=== PATIENT | female | born 1955 | race Caucasian/White ===

== ENCOUNTER 2016-12-20 23:19 | Inpatient (IN) | payer MEDICARE, MEDICAID ==
--- NOTE | 2016-12-21 00:23 | ED ---
Abdominal Pain/Female - HPI Summary HPI Summary: 61 female presents as a transfer from [facility] with the diagnosis of an incarcerated hernia. Patient states she has had abdominal pain, nausea and diarrhea the past 4 days. Denies fever, flank pain and urinary pain. States abdominal pain is mid to low abdomen. Extensive PMHx. Had morphine while at [facility] for pain a few hours ago. - History of Current Complaint Chief Complaint: EDAbdPain Stated Complaint: ABD PAIN Time Seen by Provider: 12/20/16 23:35 Hx Obtained From: Patient, Medical Records, Other: - [facility] Onset/Duration: Sudden Onset, Lasting Weeks, Still Present, Worse Since Timing: Constant Severity Initially: Mild Severity Currently: Moderate Pain Intensity: 5 Pain Scale Used: 0-10 Numeric Location: Umbilical Radiates: No Character: Sharp Aggravating Factor(s): Nothing Alleviating Factor(s): Nothing Associated Signs and Symptoms: Positive: Nausea, Diarrhea Allergies/Adverse Reactions: Allergies Allergy/AdvReac Type Severity Reaction Status Date / Time No Known Allergies Allergy Verified 04/28/15 15:59 PMH/Surg Hx/FS Hx/Imm Hx Endocrine/Hematology History: Denies: Hx Diabetes Cardiovascular History: Reports: Hx Hypertension Denies: Hx Angina, Hx Congestive Heart Failure, Hx Coronary Artery Disease, Hx Hypercholesterolemia, Hx Myocardial Infarction, Hx Valvular Heart Disease Respiratory History: Reports: Hx Asthma, Other Respiratory Problems/Disorders - TROUBLE BREATHING WITH EXERTION, SHE RELATES TO WEIGHT Denies: Hx Chronic Obstructive Pulmonary Disease (COPD) GI History: Reports: Hx Gastroesophageal Reflux Disease - NO MEDS, Other GI Disorders - 1-2loose BMs a day prior to surgery History: Reports: Hx Kidney Infection - LAST ONE 01/2013 - NO PROBLEMS NOW, Other Problems/Disorders - Neurogenic bladder, OCCASIONAL BLADDER INFECTIONS , NONE NOW. Musculoskeletal History: Reports: Hx Arthritis - LEFT HIP, LOWER BACK, Hx Back Problems - Chronic back pain, Other Musculoskeletal History - left knee replacement Sensory History: Reports: Hx Contacts or Glasses - GLASSES Denies: Hx Hearing Aid Opthamlomology History: Reports: Hx Contacts or Glasses - GLASSES Neurological History: Reports: Hx Headaches, Other Neuro Impairments/Disorders - migranes, PAIN CLINIC PT Psychiatric History: Reports: Hx Anxiety - Pt denies - Surgical History Surgery Procedure, Year, and Place: 1994 [facility]. 2007 BACK SURGERY WITH RODS AND SCREWS (spinal fusion), [place]. 2008 TOTAL LEFT KNEE, [place]. 2009 TOTAL HYSTERECTOMY WITH BILATERAL SALPINGO-OOPHORECTOMY, [place]. 2010 BILATERAL BREAST REDUCTION, [place]. 2014 L TOTAL HIP Hx Anesthesia Reactions: Yes - INCREASE ANXIETY AND PANIC-PREOP / INCREASE BP POST OP - Immunization History Immunizations Up to Date: Yes Infectious Disease History: No Infectious Disease History: Denies: Traveled Outside the [place] in Last 30 Days - Family History Known Family History: Positive: None - Social History Alcohol Use: Rare Alcohol Amount: weekends Substance Use Type: Reports: None Substance Use Comment - Amount & Last Used: opiates prescribed for chronic back pain Smoking Status (MU): Never Smoked Tobacco Review of Systems Constitutional: Negative Cardiovascular: Negative Respiratory: Negative Positive: Abdominal Pain, Diarrhea, Nausea Skin: Negative All Other Systems Reviewed And Are Negative: Yes Physical Exam Triage Information Reviewed: Yes Vital Signs On Initial Exam: Initial Vitals Temp Pulse Resp BP Pulse Ox 97.8 F 59 16 145/71 97 12/20/16 23:28 12/20/16 23:28 12/20/16 23:28 12/20/16 23:28 12/20/16 23:28 Vital Signs Reviewed: Yes Appearance: Positive: Well-Appearing, Well-Nourished, Pain Distress - mild especially on palpation Skin: Positive: Warm, Skin Color Reflects Adequate Perfusion, Dry Head/Face: Positive: Normal Head/Face Inspection Eyes: Positive: Normal, Conjunctiva Clear ENT: Positive: Hearing grossly normal, TMs normal Neck: Positive: Supple, Nontender Respiratory/Lung Sounds: Positive: Clear to Auscultation, Breath Sounds Present. Negative: Rales, Rhonchi, Wheezes Cardiovascular: Positive: Normal, RRR, Pulses are Symmetrical in both Upper and Lower Extremities. Negative: Murmur, Rub Abdomen Description: Positive: Soft, Hernia @ - umbilicus, non reducible, Other : - tender on palpation. Negative: Peritoneal Signs Bowel Sounds: Positive: Present Musculoskeletal: Positive: Normal, Strength/ROM Intact Neurological: Positive: Normal, Sensory/Motor Intact, Alert, Oriented to Person Place, Time Psychiatric: Positive: Affect/Mood Appropriate AVPU Assessment: Alert - Pisek Coma Scale Coma Scale Total: 15 Diagnostics - Vital Signs Vital Signs Temp Pulse Resp BP Pulse Ox 12/20/16 23:28 97.8 F 59 16 145/71 97 - Laboratory Lab Statement: Any lab studies that have been ordered have been reviewed, and results considered in the medical decision making process. Abdominal Pain Fem Course/Dx - Course Course Of Treatment: Spoke with Dr Ling at 00:20 who is aware of the transfer and patient. Will admit and consult patient tomorrow morning. Dr Ling put in orders for pain management. - Diagnoses Provider Diagnoses: Incarcerated umbilical hernia - Provider Notifications Discussed Care Of Patient With: Dr Ling Time Discussed With Above Provider: 00:20 Instructed by Provider To: Admit As Inpatient Discharge - Discharge Plan Condition: Stable Disposition: ADMITTED TO [facility] Referrals: Mike BANKS,Paddy Sethi [Primary Care Provider] -
[2016-12-21] MEDS ORDERED: Ondansetron INJ* 2 MG/ML VIAL IV PRN (00:28)
[2016-12-21] MEDS: Morphine INJ* 2 MG/ML 1 ML SYRINGE IV PRN ×4 (01:37→14:40)
[2016-12-21] MEDS: NS 0.9% 1000 ML* 1,000 ML IV SCH ×3 (01:40→21:53)
[2016-12-21] MEDS ORDERED: Morphine INJ* 2 MG/ML 1 ML SYRINGE IM ONE (11:27)
[2016-12-21 12:13] LABS: Hematocrit 41 % (35-47); Hemoglobin 13.5 g/dl (12.0-16.0); Mean Corpuscular HGB Conc 33 g/dl (31-36); Mean Corpuscular Hemoglobin 31 pg (27-31); Mean Corpuscular Volume 93 fL (80-97); Mean Platelet Volume 9 um3 (7.4-10.4); Red Blood Count 4.43 10^6/ul (4.0-5.4); Red Cell Distribution Width 14 % (10.5-15); White Blood Count 5.1 10^3/ul (3.5-10.8)
[2016-12-21 12:23] LABS: BUN/Creatinine Ratio 12.8 (8-20); Calcium 8.9 mg/dL (8.6-10.3); EGFR African American 78.4 (>60); Potassium 3.9 mmol/L (3.5-5.0)
[2016-12-21] MEDS ORDERED: Albuterol/Ipratropium NEB.SOL* Albuterol 2.5 MG/Ipratropium 0.5 MG 3 ML INH PRN (12:27)
--- NOTE | 2016-12-21 13:12 | RAD ---
Indication: Respiratory history with asthma. Umbilical hernia. Comparison: December 20, [address] April 28, 2015 chest radiograph. Technique: Upright AP 1235 hours Report: Clear lungs and pleural spaces. Negative for pneumothorax. Mild cardiomegaly with LEFT atrial enlargement based on correlation with prior CT unremarkable central pulmonary vasculature. Moderately tortuous descending thoracic aorta. Negative for free air beneath the diaphragm. IMPRESSION: No evidence for acute intrathoracic disease.
[2016-12-21] MEDS: Acetaminophen TAB* 325 MG PO PRN ×2 (14:39→21:06)
--- NOTE | 2016-12-21 19:28 | HP ---
CC: Dr. Paddy Mckeon * ADMISSION HISTORY AND PHYSICAL: DATE OF ADMISSION: 12/21/16 LOCATION: This patient was seen in room 332 at [facility]. ATTENDING SURGEON: Ashish Stubbs MD (dictated by Michelle Crews NP) CHIEF COMPLAINT: Worsening abdominal pain. HISTORY OF PRESENT ILLNESS: The patient is a 61-year-old female who presented to the [facility] Emergency Room as a transfer from [facility] last evening with a diagnosis of an incarcerated umbilical hernia. She states that she has had 4 days of abdominal pain, nausea and diarrhea. She denies fever or chills or flank pain or dysuria. The patient states that the abdominal pain is associated with the umbilical bulge which is nonreducible. She had a CAT scan of the abdomen and pelvis at [facility] that revealed an edematous fat- containing umbilical hernia suspicious for incarceration. She has had prior abdominal surgeries including a laparoscopic sleeve gastrectomy at the [facility]; section in 1994; total hysterectomy with bilateral salpingo- oophorectomy in 2010. Dr. Ling evaluated the patient at the bedside this morning and plans were made for the patient to have a hospitalist consult today for preoperative evaluation due to her multiple medical problems and then Dr. Stubbs will take the patient to the operating room, tomorrow 12/22/16, for open repair of incarcerated umbilical hernia with possible mesh. PAST MEDICAL HISTORY: Significant for hypertension, asthma, GERD, obesity, and neurogenic bladder and degenerative joint disease. PAST SURGICAL HISTORY: In 1994 section, 2006 back surgery with rods and screws (spinal fusion), total right and left knee replacements, total hysterectomy with bilateral salpingo-oophorectomy, bilateral breast reduction, left total hip replacement, laparoscopic sleeve gastrectomy. MEDICATIONS: 1. Atenolol 50 mg p.o. b.i.d. 2. Lisinopril 5 mg p.o. daily. 3. Oxycodone with acetaminophen 10/325 mg 1 tablet 3 times a day p.r.n. pain. 4. Multivitamin daily. 5. B complex vitamins daily. 6. Cymbalta 60 mg p.o. daily. 7. Gabapentin 800 mg p.o. t.i.d. 8. Atarax 50 mg p.o. at bedtime. 9. Lasix 20 mg p.o. daily. 10. Advair 250/500 inhaler p.r.n. 11. Protonix 40 mg p.o. daily. 12. Potassium chloride 10 mEq p.o. daily. 13. Hydrochlorothiazide 25 mg p.o. daily. 14. Vitamin D3 supplement dose unknown daily. 15. Biotin dose unknown daily. 16. Probiotic 1 capsule daily. 17. Metamucil daily. 18. Aspirin 81 mg p.o. daily at bedtime. 19. Valium 10 mg p.o. at bedtime. 20. Ipratropium albuterol 0.5/2.5 mg/3 mL q.4 p.r.n. shortness of breath. 21. Flexeril 10 mg p.o. t.i.d. p.r.n. pain. ALLERGIES: No known drug allergies. FAMILY HISTORY: Noncontributory. SOCIAL HISTORY: She is a nonsmoker. She is employed [employer]. She rarely drinks alcohol and takes opiates prescribed for chronic back pain. REVIEW OF SYSTEMS: Cardiovascular: She is treated for hypertension. She denies any history of myocardial infarction or congestive heart failure, she denies any chest pain, pressure or palpitations. Respiratory: She has a history of asthma, no recent flare-ups. Gastrointestinal: As described in history of present illness; she also has a history of GERD. Genitourinary: She reports neurogenic bladder and had to have an indwelling catheter for 5 years but discontinued that 18 months ago due to frequent urinary tract infections and kidney infections. The last infection was approximately in 2013. No dysuria at present. Musculoskeletal: She reports arthritis in left hip, lower back, and has chronic back pain and is status post bilateral knee replacements. Neurologic: Reports headaches, specifically migraines. Psychiatric: She reports anxiety. She denies any previous history of anesthesia complications, bleeding tendencies or deep vein thrombosis or pulmonary embolism. PHYSICAL EXAMINATION GENERAL SURVEY: The patient is a 61-year-old obese female complaining of periumbilical pain rated 5/10 intensity. VITAL SIGNS: Height 65 inches, weight 220 pounds, body mass index 36. Blood pressure 109/66, pulse 60 and regular, respiratory rate 16, temperature 97.4 tympanic, O2 saturation 91% to 96% on room air. HEENT: Benign. NECK: Supple. No cervical lymphadenopathy. BACK: No CVA tenderness. LUNGS: Breath sounds bilaterally clear and equal. HEART: Regular rate and rhythm. No murmurs or rubs. ABDOMEN: Obese, hypoactive bowel sounds. Obvious bulge consistent with incarcerated umbilical hernia, nonreducible, tender on palpation. No other obvious masses or organomegaly. PELVIC : Deferred. RECTAL: Deferred. EXTREMITIES: Warm without edema or skin ulceration. NEUROLOGIC: Alert and oriented x3. SKIN: Warm, dry, and intact. IMPRESSION: Incarcerated umbilical hernia containing fat. PLAN: Admit to Dr. Stubbs's service, obtain preoperative medical evaluation with the hospitalist service and I have contacted Dr. Travis today; n.p.o. except for sips with medications; IV fluids; pain management; and the plan is for the operating room with Dr. Stubbs tomorrow for open repair of incarcerated umbilical hernia with the possible use of mesh. Dr. Stubbs will discuss the nature of the surgical procedure, the relevant risks and benefits, and the patient will have an opportunity to ask questions. TIME SPENT: Time spent with more than 50% in nvcy-hw-dcil history taking and the patient counseling, 90 minutes. CATRACHITA CREWS NP [id number]/[facility] #: [id number] ISMAEL
[2016-12-21] MEDS: Gabapentin CAP(*) 400 MG PO SCH (21:02)
[2016-12-21] MEDS: Atenolol TAB* 50 MG PO SCH (21:02)
[2016-12-21] MEDS: Mometasone/Formoter 200/5 MDI INH SCH (21:04)
[2016-12-21 21:32] LABS: Urine Bacteria Absent (Absent); Urine Bilirubin Negative (Negative); Urine Glucose Negative (Negative); Urine Nitrite Negative (Negative)
--- NOTE | 2016-12-21 21:58 | CONS ---
CC: Dr. Ling; Dr. Mkceon * CONSULTATION REPORT: DATE OF CONSULT: 12/21/16 REQUESTING PHYSICIAN FOR CONSULT: Dr. Ling. PRIMARY CARE PROVIDER: Dr. Mckeon. ATTENDING PHYSICIAN WHILE IN THE HOSPITAL: Cuate Travis MD (reported dictated by Juan A Ronquillo NP) CHIEF COMPLAINT: Abdominal pain. REASON FOR MEDICAL CONSULTATION: Medical management on perioperative risk stratification. Medical management of comorbid medical conditions. HISTORY OF PRESENT ILLNESS: Ms. Cutler is a 61-year-old female patient who says that yesterday she was going to work, she had an episode while walking into work where she became incontinent of her bowels. She proceeded to go into the bathroom, cleaned herself up, and then went back to work. However, throughout the day, she has had progressive worsening abdominal pain centered around her umbilicus. She said that she had pain off and on for the last couple of weeks, but the pain yesterday got much worse and more severe to the point where she was able to finish her work day, but she knew that she needed to get evaluated so she went and saw her primary, Dr. Mckeon, who was concerned for incarcerated hernia. There was a noted hernia on exam and she was tender and so he sent her to [facility] to get a CT of the abdomen, which showed a concern for incarcerated hernia and she was transferred here. She carries a history of hypertension, neurogenic bladder, asthma, GERD, chronic back pain, degenerative joint disease, degenerative disk disease, and a history of chronic UTIs. She came in, was admitted by our surgical team. We were asked to evaluate in consult. She denied having any history of coronary artery disease. No stents, no open heart surgery; however, she does state that she is able to do chores around her house, breaking leaves and mowing her parents' yard without getting any shortness of breath or chest discomfort. She did admit to having some again central abdominal pain currently that had been getting worse over the last of couple days, but much worse yesterday and she had some associated nausea, but no chills or fevers. She denied any recent episodes of shortness of breath or cough or any fevers or chills. Again but because of her medical history, we were asked to evaluate in consult. PAST MEDICAL HISTORY: Significant for: 1. Hypertension. 2. Asthma. 3. Neurogenic bladder. 4. GERD. 5. Chronic back pain. 6. Chronic UTIs. 7. Degenerative joint disease. 8. Degenerative disk disease. 9. Spinal stenosis. PAST SURGICAL HISTORY: 1. She has had a gastric bypass. 2. Bilateral total knee replacement. 3. Total abdominal bilateral salpingo-oophorectomy. 4. . 5. Back surgery. 6. Left total hip. HOME MEDICATIONS: According to the list that Emerson provided with me includes: 1. Metamucil 1 capsule p.o. daily. 2. DuoNeb 1 neb inhaled every 4 hours as needed. 3. Probiotics 1 capsule daily. 4. Biotin 1000 mcg p.o. daily. 5. Hydrochlorothiazide 25 mg daily. 6. Vitamin D 1000 units p.o. daily. 7. Protonix 40 mg daily. 8. Calcium with magnesium 1 capsule p.o. daily. 9. Vitamin B 1 tablet p.o. daily. 10. Flexeril 10 mg p.o. at bedtime. 11. Atenolol 50 mg p.o. b.i.d. 12. Aspirin 81 mg daily. 13. Potassium 10 mEq p.o. daily. 14. Multivitamin 1 tablet p.o. daily. 15. Lisinopril 5 mg daily. 16. Gabapentin 800 mg p.o. b.i.d. 17. Advair 1 puff inhaled b.i.d. 18. Valium 1 tablet p.o. daily as needed. 19. Cymbalta 60 mg p.o. daily. 20. Percocet 1 tablet p.o. t.i.d. as needed. 21. Atarax 100 mg p.o. at bedtime. ALLERGIES TO MEDICATIONS: Include no known drug allergies. FAMILY HISTORY: Mother had a history of heart disease. Father's history reviewed and noncontributory. SOCIAL HISTORY: She does not smoke. She rarely drinks alcohol if anything on the weekend. Surrogate decision maker is her sister, Emerson. REVIEW OF SYSTEMS: There is no documented fever. She denied having any significant weight change. There was no double vision. She denies having any ear discharge. There was no rhinorrhea, no sore throat, no thyroid enlargement. She denies having any chest pain. There was no orthopnea, no nocturnal dyspnea. There is abdominal pain per my HPI. There was one episode of nausea, but no vomiting. No dyspnea, no frequency, no seizure, no loss of consciousness, no pruritus, and no skin ulcerations. Review of 14 systems completed, all others negative. PHYSICAL EXAM: Reveals vital signs, blood pressure 135/71, pulse of 55, respirations 16, O2 sat 93%, and temperature 98.0. General: At this time, Ms. Cutler is a 61-year-old female patient. She is sitting in the hospital bed, does not appear to be in any acute distress. HEENT: Head is atraumatic and normocephalic. Eyes: EOMs are intact. Sclerae anicteric and not pale. Neck: Supple. Throat: Oral mucosa appears to be moist, no oropharyngeal erythema. Heart: Sounds S1, S2. Regular rate and rhythm. No murmurs, rubs, or gallops. Lungs: Clear to auscultation bilaterally. No wheezes, rales, or rhonchi. Abdomen was soft and flat. There was an umbilical hernia, which was tender to palpation. Bowel sounds present. Extremities: Pulses 2+ throughout, she is able to move all 4 extremities with 5/5 strength. Neurologically, she is awake , alert, and oriented x3. Tongue midline. Records Management Assistant are equal. No gross focal deficits. The skin is grossly intact. DIAGNOSTIC STUDIES/LAB DATA: Today revealed WBC 5.1, RBC 4.43, hemoglobin 13.5 , hematocrit 41, platelet count 212. Sodium 141, potassium 3.9, chloride 106, bicarb 32, BUN 12, creatinine of 0.94, glucose of 103, calcium 8.3. EKG obtained at our facility showed a sinus bradycardia at a rate of 55. No ST elevations or T-wave inversions. It was reviewed to a previous EKG. It does appear to be similar with the exception the rate is slower now at 55 beats per minute. The patient did have a stress test 2 years ago, which did show no evidence for stress induced myocardial ischemia or presence of infarct. She did have a CT of the abdomen and pelvis over at [place]. Impression: Edematous fat containing umbilical hernia suspicious for incarceration. Old medical records were reviewed. ASSESSMENT AND PLAN: Ms. Cutler is a 61-year-old female patient coming over from [facility] with complaints of abdominal discomfort, admitted on our surgical services for an incarcerated hernia. We were asked to evaluate to help manage her medical problems and for perioperative risk stratifications. Recommendations at this point are: 1. Incarcerated hernia. I will defer the management to Dr. Ling and his team. At this point, her RCRI, she has no risk factors. At this point, she is low risk. She has not had any active coronary disease. Her chest x-ray is stable. Her EKG apparently is stable. I believe she is medically optimized at this point. She had a stress test 2 years ago, which was negative and certainly we will continue to follow in the perioperative setting. 2. Hypertension. I would continue her meds with the exception of the hydrochlorothiazide and lisinopril. We will give the atenolol with hold parameters. 3. Asthma. That may be her biggest risk for postoperative recovery, but will obviously need aggressive pulmonary toileting, incentive spirometry if it is okay with Surgery. I know she is having abdominal surgery. I have ordered p.r.n. nebulizers and I have continued her Advair. We will continue this throughout her surgery. 4. Neurogenic bladder. I will get a bladder scan postvoid. If she is retaining, then I would have her probably get a consult with Urology. She has seen Dr. Curtis in the past and has required a chronic Warner in the past. She may need this again. The reason she may be retaining now certainly may be from the hernia. My plan is to go ahead and get urinalysis as well as she may have a urinary tract infection and we will certainly treat it if needed. 5. Chronic back pain. She will be on IV morphine and I will continue her Neurontin and Cymbalta. 6. Degenerative joint disease and degenerative disk disease. Continue her current medical regimen. 7. DVT prophylaxis. I defer to the primary team, but I would recommend heparin if possible or Lovenox. 8. Code status. Full code. 9. Fluids, electrolytes, and nutrition. She is n.p.o. except her meds. TIME SPENT: Time spent on the consult was 60 minutes, greater than half the time was spent [id number] with the patient obtaining my history and physical, other half the time spent going over the plan of care with the patient and implementing plan of care. I did discuss the plan of care with my attending, Dr. Travis, he is in agreement. JUAN A RONQUILLO, OFFLINE CUTTER [id number]/[facility] #: [id number] ISMAEL
[2016-12-22] MEDS: Morphine INJ* 2 MG/ML 1 ML SYRINGE IV PRN ×4 (04:19→23:53)
[2016-12-22] MEDS: Acetaminophen TAB* 325 MG PO PRN (04:20)
[2016-12-22] MEDS: NS 0.9% 1000 ML* 1,000 ML IV SCH (06:12)
[2016-12-22 06:25] LABS: Hematocrit 40 % (35-47); Hemoglobin 13.3 g/dl (12.0-16.0); Mean Corpuscular HGB Conc 34 g/dl (31-36); Mean Corpuscular Hemoglobin 31 pg (27-31); Mean Corpuscular Volume 92 fL (80-97); Mean Platelet Volume 9 um3 (7.4-10.4); Red Blood Count 4.28 10^6/ul (4.0-5.4); Red Cell Distribution Width 14 % (10.5-15); White Blood Count 5.2 10^3/ul (3.5-10.8)
[2016-12-22 06:41] LABS: BUN/Creatinine Ratio 15.4 (8-20); Calcium 8.5 mg/dL (8.6-10.3); EGFR African American 97.2 (>60); EGFR Non-African American 75.6 (>60); Potassium 3.4 mmol/L (3.5-5.0)
[2016-12-22] MEDS: Atenolol TAB* 50 MG PO SCH ×2 (08:14→21:16)
[2016-12-22] MEDS: DULoxetine DR CAP* 60 MG CAP.DR PO SCH (08:14)
[2016-12-22] MEDS: Gabapentin CAP(*) 400 MG PO SCH ×2 (08:14→21:16)
[2016-12-22] MEDS: Omeprazole CAP* 20 MG PO SCH (08:14)
[2016-12-22] MEDS: Mometasone/Formoter 200/5 MDI INH SCH ×2 (08:15→21:17)
[2016-12-22] MEDS ORDERED: ALPRAZolam TAB* 0.25 MG PO PRN (08:26)
--- NOTE | 2016-12-22 14:24 | PN ---
Subjective Date of Service: 12/22/16 Interval History: Ms. Cutler is examined in the PACU. She reports abdominal pain but denies other complaint including chest pain, SOB, nausea, or abdominal pain. Objective Active Medications: Acetaminophen (Tylenol Tab*) 650 mg PO Q6H PRN Albuterol/Ipratropium (Duoneb (Albuterol 2.5 Mg/Ipratropium 0.5 Mg)) 1 neb INH Q4H PRN Alprazolam (Xanax Tab*) 0.25 mg PO Q8H PRN Atenolol (Tenormin Tab*) 50 mg PO BID MARIE Duloxetine HCl (Cymbalta Cap*) 60 mg PO DAILY MARIE Gabapentin (Neurontin Cap(*)) 800 mg PO BID MARIE Sodium Chloride (Ns 0.9% 1000 Ml*) 1,000 mls @ 125 mls/hr IV PER RATE MARIE Mometasone Furoate/Formoterol Fumar (Dulera 200/5 Mdi*) 2 puff INH BID MARIE Morphine Sulfate (Morphine Inj (Syringe)*) 2 mg IV Q1H PRN Omeprazole (Prilosec Cap*) 20 mg PO DAILY@0730 MARIE Ondansetron HCl (Zofran Inj*) 4 mg IV Q6H PRN Vital Signs 12/21/16 12/21/16 12/21/16 14:40 15:35 19:37 Temperature 97.9 F 98.3 F Pulse Rate 70 61 Respiratory 16 16 16 Rate Blood Pressure 122/67 115/63 (mmHg) O2 Sat by Pulse 94 93 Oximetry 12/21/16 12/21/16 12/21/16 20:00 21:02 23:02 Temperature Pulse Rate Respiratory 18 18 18 Rate Blood Pressure (mmHg) O2 Sat by Pulse Oximetry 12/22/16 12/22/16 12/22/16 00:10 03:28 04:19 Temperature 97.8 F 97.6 F Pulse Rate 60 54 Respiratory 16 16 18 Rate Blood Pressure 107/56 122/71 (mmHg) O2 Sat by Pulse 94 96 Oximetry 12/22/16 12/22/16 12/22/16 05:19 07:30 08:10 Temperature 98.1 F Pulse Rate 58 Respiratory 18 15 16 Rate Blood Pressure 130/76 (mmHg) O2 Sat by Pulse 98 Oximetry 12/22/16 12/22/16 12/22/16 08:14 09:22 10:06 Temperature Pulse Rate Respiratory 16 16 16 Rate Blood Pressure (mmHg) O2 Sat by Pulse Oximetry 12/22/16 12/22/16 12/22/16 10:14 11:06 11:22 Temperature Pulse Rate Respiratory 16 16 16 Rate Blood Pressure (mmHg) O2 Sat by Pulse Oximetry 12/22/16 12/22/16 11:54 12:05 Temperature 98.3 F Pulse Rate 62 Respiratory 14 16 Rate Blood Pressure 155/82 (mmHg) O2 Sat by Pulse 99 Oximetry Oxygen Devices in Use Now: Nasal Cannula Appearance: Female lying in bed in NAD Eyes: No Scleral Icterus Ears/Nose/Mouth/Throat: Mucous Membranes Moist Neck: Trachea Midline Respiratory: Symmetrical Chest Expansion and Respiratory Effort, Clear to Auscultation Cardiovascular: NL Sounds; No Murmurs; No JVD, No Edema Abdominal: - - Abd binder in place, KENJI drain with sanginous drainage Lymphatic: No Cervical Adenopathy Extremities: No Edema Skin: No Rash or Ulcers Neurological: Alert and Oriented x 3, NL Muscle Strength and Tone Nutrition: Taking PO's Result Diagrams: 12/22/16 04:57 12/22/16 04:54 Assess/Plan/Problems-Billing Assessment: Ms. Cutler is a 61 yo female with a PMH of hypertension, asthma, and chronic UTIs who was admitted on 12/21/16 with an incarcerated umbilical hernia. - Patient Problems (1) Incarcerated hernia Comment: - POD # 0. - Management per surgery. (2) Asthma Comment: - Asymptomatic. - Continue dulera with duonebs prn. (3) Hypertension Comment: - SBP 150s. - Continue atenolol. (4) Neurogenic bladder Comment: - Monitor for UO. - Place sommer if unable to urinate. (5) GERD (gastroesophageal reflux disease) Comment: - Continue omeprazole. (6) Anxiety and depression Comment: - Continue alprazolam prn and cymbalta. (7) Chronic back pain Comment: - Continue neurontin and cymbalta. (8) DVT prophylaxis (9) Full code status Status and Disposition: Inpatient with disposition per surgery.
[2016-12-22] MEDS ORDERED: ceFAZolin 2 GM PREMIX(*) 2 GM/50 ML BAG IVPB ONE (15:48)
[2016-12-22] MEDS ORDERED: Bupivacaine 0.25% EPI 200,000* 30 ML SDV ONE (15:53)
[2016-12-22] MEDS ORDERED: KETAMINE HCL* 50 MG/ML 10 ML VIAL ONE (16:02)
[2016-12-22] MEDS ORDERED: Propofol* 10 MG/ML 20 ML BTL IV PUSH ONE (16:02)
[2016-12-22] MEDS ORDERED: Dexamethasone IV* 4 MG/ML 1 ML (4 MG) ONE (16:02)
[2016-12-22] MEDS ORDERED: fentaNYL* 50 MCG/ML 2 ML VIAL (100 MCG VIAL) ONE ×3 (16:02→18:48)
[2016-12-22] MEDS ORDERED: Ketorolac INJ* 30 MG/ML 1 ML VIAL ONE (16:02)
[2016-12-22] MEDS ORDERED: Lidocaine 2% PF * 5 ML VIAL ONE (16:02)
[2016-12-22] MEDS ORDERED: Ondansetron INJ* 2 MG/ML VIAL ONE (16:02)
[2016-12-22] MEDS ORDERED: Midazolam* 1 MG/ML 5 ML VIAL (5 MG) ONE ×2 (16:03→16:27)
[2016-12-22] MEDS ORDERED: Atracurium* 10 MG/ML 10 ML VIAL ONE (16:35)
[2016-12-22] MEDS ORDERED: oxyCODONE/Acetamin 5/325 MG* TAB PO PRN (17:17)
[2016-12-22] MEDS ORDERED: fentaNYL* 50 MCG/ML 2 ML VIAL (100 MCG VIAL) IV PRN (17:17)
[2016-12-22] MEDS ORDERED: Ondansetron INJ* 2 MG/ML VIAL IV PRN (17:17)
[2016-12-22] MEDS ORDERED: HYDROmorphone* 1 MG/ML 1 ML SYR ONE ×2 (17:50→18:25)
--- NOTE | 2016-12-22 18:14 | PN ---
Progress Note - Progress Note Date of Service: 12/22/16 Note: Brief Operative Note: Pre-op: Incarcerated umbilical hernia Post-op: Same Procedure: Open repair of incarcerated umbilical hernia with mesh Surgeon: Dr. Stubbs Rn Sexual Assault: Carlos Beck PA-S EBL: <50 cc Fluids: 1500 cc LR Drains: KENJI to self suction Catheter: None Specimen: Hernia sac Findings: See dictated op note
[2016-12-22] MEDS: HYDROmorphone* 1 MG/ML 1 ML SYR IV PRN ×2 (18:26→18:40)
[2016-12-22] MEDS ORDERED: oxyCODONE/Acetamin 5/325 MG* TAB ONE (18:48)
[2016-12-22] MEDS: oxyCODONE/Acetamin 5/325 MG* TAB PO PRN (18:51)
[2016-12-23] MEDS: NS 0.9% 1000 ML* 1,000 ML IV SCH (00:30)
[2016-12-23] MEDS: oxyCODONE/Acetamin 5/325 MG* TAB PO PRN ×3 (02:25→10:08)
[2016-12-23 08:37] VITALS: BP 112/76
[2016-12-23] MEDS: DULoxetine DR CAP* 60 MG CAP.DR PO SCH (08:44)
[2016-12-23] MEDS: Gabapentin CAP(*) 400 MG PO SCH (08:44)
[2016-12-23] MEDS: Atenolol TAB* 50 MG PO SCH (08:44)
[2016-12-23] MEDS: Omeprazole CAP* 20 MG PO SCH (08:44)
[2016-12-23] MEDS: Mometasone/Formoter 200/5 MDI INH SCH (08:45)
--- NOTE | 2016-12-23 08:55 | PN ---
Subjective Date of Service: 12/23/16 Interval History: Ms. Cutler reports having some minimal abdominal pain but denies other complaint including chest pain, SOB, or nausea. Objective Active Medications: Acetaminophen (Tylenol Tab*) 650 mg PO Q6H PRN Albuterol/Ipratropium (Duoneb (Albuterol 2.5 Mg/Ipratropium 0.5 Mg)) 1 neb INH Q4H PRN Alprazolam (Xanax Tab*) 0.25 mg PO Q8H PRN Atenolol (Tenormin Tab*) 50 mg PO BID MARIE Duloxetine HCl (Cymbalta Cap*) 60 mg PO DAILY MARIE Gabapentin (Neurontin Cap(*)) 800 mg PO BID MARIE Sodium Chloride (Ns 0.9% 1000 Ml*) 1,000 mls @ 125 mls/hr IV PER RATE MARIE Mometasone Furoate/Formoterol Fumar (Dulera 200/5 Mdi*) 2 puff INH BID MARIE Morphine Sulfate (Morphine Inj (Syringe)*) 2 mg IV Q1H PRN Omeprazole (Prilosec Cap*) 20 mg PO DAILY@0730 MARIE Ondansetron HCl (Zofran Inj*) 4 mg IV Q6H PRN Oxycodone/Acetaminophen (Percocet 5/325 Tab*) 2 tab PO Q4H PRN Vital Signs 12/22/16 12/22/16 12/22/16 09:22 10:06 10:14 Temperature Pulse Rate Respiratory 16 16 16 Rate Blood Pressure (mmHg) O2 Sat by Pulse Oximetry 12/22/16 12/22/16 12/22/16 11:06 11:22 11:54 Temperature 98.3 F Pulse Rate 62 Respiratory 16 16 14 Rate Blood Pressure 155/82 (mmHg) O2 Sat by Pulse 99 Oximetry 12/22/16 12/22/16 12/22/16 12:05 18:11 18:15 Temperature 97.3 F Pulse Rate 70 69 Respiratory 16 16 16 Rate Blood Pressure 151/88 152/90 (mmHg) O2 Sat by Pulse 90 93 Oximetry 12/22/16 12/22/16 12/22/16 18:20 18:25 18:26 Temperature Pulse Rate 67 67 Respiratory 18 18 16 Rate Blood Pressure 158/79 100/54 (mmHg) O2 Sat by Pulse 93 93 Oximetry 12/22/16 12/22/16 12/22/16 18:30 18:40 18:45 Temperature Pulse Rate 62 63 Respiratory 18 16 18 Rate Blood Pressure 165/92 161/85 (mmHg) O2 Sat by Pulse 94 96 Oximetry 12/22/16 12/22/16 12/22/16 18:51 18:52 19:00 Temperature Pulse Rate 64 Respiratory 16 16 18 Rate Blood Pressure 158/64 (mmHg) O2 Sat by Pulse 95 Oximetry 12/22/16 12/22/16 12/22/16 19:52 20:11 20:46 Temperature 98.5 F Pulse Rate 63 Respiratory 18 16 Rate Blood Pressure 116/58 (mmHg) O2 Sat by Pulse 95 97 Oximetry 12/22/16 12/22/16 12/22/16 20:51 21:16 21:34 Temperature 98 F Pulse Rate 58 Respiratory 16 16 18 Rate Blood Pressure 151/85 (mmHg) O2 Sat by Pulse 99 Oximetry 12/22/16 12/22/16 12/22/16 21:37 21:50 23:16 Temperature 98.5 F Pulse Rate 57 Respiratory 16 16 16 Rate Blood Pressure 123/76 (mmHg) O2 Sat by Pulse 94 Oximetry 12/22/16 12/23/16 12/23/16 23:53 00:00 00:53 Temperature 98.2 F Pulse Rate 65 Respiratory 16 16 14 Rate Blood Pressure 103/53 (mmHg) O2 Sat by Pulse 96 Oximetry 12/23/16 12/23/16 12/23/16 02:07 02:25 03:22 Temperature 98.3 F 98.2 F Pulse Rate 66 65 Respiratory 16 16 16 Rate Blood Pressure 112/56 115/60 (mmHg) O2 Sat by Pulse 97 97 Oximetry 12/23/16 12/23/16 12/23/16 04:25 06:27 07:26 Temperature 98.2 F Pulse Rate 61 Respiratory 16 16 14 Rate Blood Pressure 112/76 (mmHg) O2 Sat by Pulse 95 Oximetry 12/23/16 12/23/16 08:27 08:44 Temperature Pulse Rate Respiratory 18 18 Rate Blood Pressure (mmHg) O2 Sat by Pulse Oximetry Oxygen Devices in Use Now: None Appearance: Female sitting up in chair in NAD Eyes: No Scleral Icterus Ears/Nose/Mouth/Throat: Mucous Membranes Moist Neck: NL Appearance and Movements; NL JVP Respiratory: Symmetrical Chest Expansion and Respiratory Effort, Clear to Auscultation Cardiovascular: NL Sounds; No Murmurs; No JVD, No Edema Abdominal: - - Soft, mild generalized abdominal tenderness Lymphatic: No Cervical Adenopathy Extremities: No Edema Skin: No Rash or Ulcers Neurological: Alert and Oriented x 3 Nutrition: Taking PO's Result Diagrams: 12/22/16 04:57 12/22/16 04:54 Microbiology and Other Data: Microbiology 12/21/16 20:30 Urine Culture - Final Urine Escherichia Coli Normal Linda Assess/Plan/Problems-Billing Assessment: Ms. Cutler is a 61 yo female with a PMH of hypertension, asthma, and chronic UTIs who was admitted on 12/21/16 with an incarcerated umbilical hernia. - Patient Problems (1) Incarcerated hernia Comment: - POD # 1. - Management per surgery, ok for discharge. (2) UTI (urinary tract infection) Comment: - Urine culture with ecoli. - History of neurogenic bladder, complete course of nitrofurantoin. (3) Asthma Comment: - Asymptomatic. - Continue dulera with duonebs prn. (4) Hypertension Comment: - SBP 150s. - Continue atenolol. (5) GERD (gastroesophageal reflux disease) Comment: - Continue omeprazole. (6) Anxiety and depression Comment: - Continue alprazolam prn and cymbalta. (7) Chronic back pain Comment: - Continue neurontin and cymbalta. (8) Full code status Status and Disposition: Inpatient with disposition per surgery.
--- NOTE | 2016-12-23 12:05 | PN ---
Progress Note - Progress Note Date of Service: 12/23/16 SOAP: Subjective: Doing well, mild incisional pain, no N/V, fever or chills. Ambulatory Objective: Awake and alert, in NAD Abdomen soft, Nt, ND. Incision C/D/I KENJI with 20 cc bloody output. Assessment: POD#1, s/p open umbilical hernia repair with mesh Plan: D/c home today
--- NOTE | 2016-12-24 10:37 | OP ---
CC: Dr. Paddy Mckeon, [facility]. OPERATIVE REPORT: DATE OF OPERATION: 12/22/16. DATE OF : . SURGEON: Ashish Stubbs MD. CRUST SORTER: ROSARIO Helm. ANESTHESIOLOGIST: Dr. Be. ANESTHESIA: General anesthesia. PRE-OP DIAGNOSIS: Incarcerated umbilical hernia. POST-OP DIAGNOSIS: Incarcerated umbilical hernia. OPERATIVE PROCEDURE: Open repair of incarcerated umbilical hernia with mesh. ESTIMATED BLOOD LOSS: Less than 50 cc. FLUIDS: 1500 cc of crystalloid fluid given. SPECIMEN: Hernia sac. DRAINS: A #7 KENJI drain left in subcutaneous space. COUNTS: Lap pad count and instrument count correct at the end of the procedure. DESCRIPTION OF PROCEDURE: Ms. Cutler is a 61-year-old female who was admitted with incarcerated um bical hernia, noted on CT scan to be consistent with omental fat and was scheduled for surgery. I o utlined in detail the procedure going over the risks, benefits, and alternatives to open umbilical h ernia with mesh. I spoke of the possible complications, which included, but not limited to bleeding , infection, recurrence, prolonged pain, need for additional procedures. The patient signed consent and was marked, taken to the operating room, placed on the operating table in the supine position, preoperative antibiotics were given. Sequential devices were placed on bilateral lower extremities. General anesthesia was induced. The patient's abdomen was prepped and draped in a standard surgic al fashion. A time-out was performed. An infraumbilical incision was made. This was deepened down to the anterior fascia inferiorly. Rob ia sac was identified and cleared off from the surrounding tissues with both electrocautery and amrik p dissection. The umbilical skin was then sharply lysed off the hernia sac. Under these circumstan deanna, I was able to reduce the hernia before we had entered into the sac. There was minimal edema in the tissue planes. The defect was approximately 3 x 3 cm. My intent was to place a preperitoneal mesh in place and in the dissection of doing this, we were limited inferiorly and we entered into th e sac at this point. The sac was then ligated along the edge of the defect, passed off as specimen. The omentum and large bowel underlying this showed no evidence of ischemia and was grasped and pul led up through the small 3 cm hole. Next, 8 cm Bard PVP mesh was utilized. It was placed into the abdominal cavity. The tails of the mesh were then brought out and sutured inferiorly and superiorly with 0 Polysorb sutures after we had cleaned off the fascia at the site. The mesh did not stay int act within the peritoneal space. For this reason, it was removed, reviewed, and showed that we had sutured through the portion of the mesh preventing it from opening up. The suture was removed and f our additional #1 Surgipro sutures placed at the four quadrants of the round mesh. It was placed ba ck into the abdomen after suturing these inferior, superior, laterally, and then parachuted into the peritoneal cavity. These sutures were tied to the fascia and the mesh was intact without wrinkling , without tension. A Secure Strap was then utilized for additional areas between the sutures, tacke d to the underside. The wound was irrigated. Hemostasis was achieved. The defect was reapproximat ed with interrupted #1 Surgipro suture in a [id number] fashion. Umbilical skin was tacked down with 2-0 Polysorb suture. Because of the extent of the dissection given the patient's body habitus, a #7 KENJI drain was brought out through a separate stab incision and allowed to sit on top of the trish sure. The skin edges were reapproximated with 3-0 Polysorb sutures followed by skin tyler. A ster ile dressing was applied. The patient tolerated the procedure well, was awoken up in the OR and tra nsferred to the PACU in stable condition. [id number]/[facility] #: [id number]
== END 2016-12-23 12:40 | disposition home or self-care (01) | DRG 354 ==
LOC: ED 23:19 → SSU 12-21 00:28 → OBSVTOIN 12-21 13:00
PROVIDERS: ADMIT Surgery; ATTEND Surgery
PROC: 0WUF0JZ Supplement Abdominal Wall with Synthetic Substitute, Open Approach (ICD-10-PCS; principal; 2016-12-22 12:45)
DX: K42.0 Umbilical hernia with obstruction, without gangrene (principal); N39.0 Urinary tract infection, site not specified; N31.9 Neuromuscular dysfunction of bladder, unspecified; I10 Essential (primary) hypertension; J45.909 Unspecified asthma, uncomplicated; K21.9 Gastro-esophageal reflux disease without esophagitis; M47.9 Spondylosis, unspecified; G89.29 Other chronic pain; G43.909 Migraine, unspecified, not intractable, without status migrainosus; F41.9 Anxiety disorder, unspecified; R40.2412 Glasgow coma scale score 13-15, at arrival to emergency department; E66.9 Obesity, unspecified; Z96.653 Presence of artificial knee joint, bilateral; Z96.642 Presence of left artificial hip joint; M19.90 Unspecified osteoarthritis, unspecified site; B96.20 Unspecified Escherichia coli [E. coli] as the cause of diseases classified elsewhere; F32.9 Major depressive disorder, single episode, unspecified; Z82.49 Family history of ischemic heart disease and other diseases of the circulatory system; Z98.1 Arthrodesis status; Z90.710 Acquired absence of both cervix and uterus; Z90.79 Acquired absence of other genital organ(s); Z90.722 Acquired absence of ovaries, bilateral; Z88.4 Allergy status to anesthetic agent; Z72.89 Other problems related to lifestyle; Z90.3 Acquired absence of stomach [part of]; Z68.36 Body mass index [BMI] 36.0-36.9, adult
CPT/HCPCS: 36415; 71010; 80048; 81003; 81015; 85025; 85610; 87077; 87086; 87186; 88302; 93005; 99283; A9270-GY; C1776; C1781; G0378; J0690; J1100; J1170; J1885; J2250; J2270; J2405; J2704; J3010

== ENCOUNTER 2024-07-26 12:00 | Inpatient (IN) ==
[2024-07-26 12:51] LABS: ABS Basophils 0.1 10^3/uL (0.0-0.1); ABS Eosinophils 0.1 10^3/uL (0.0-0.5); ABS Monocytes 0.4 10^3/uL (0.0-0.9); ABS Neutrophils 4.6 10^3/uL (1.5-7.6); Eosinophil % 1.8 %; Hemoglobin 13.4 g/dL (11.5-14.3); Lymphocyte % 16.2 %; Mean Corpuscular Hemoglobin 29.7 pg (27-33); Mean Corpuscular Hgb Conc 33.5 g/dL (31-36); Mean Corpuscular Volume 88.9 fL (80-97); Mean Platelet Volume 8.6 fL (7.5-11.2); Platelet Count 276 10^3/uL (150-450); Red Cell Distribution Width 15.1 % (12-17); White Blood Count 6.2 10^3/uL (3.8-11.8)
[2024-07-26 13:36] LABS: Albumin 3.7 g/dL (3.5-5.7); Albumin/Globulin Ratio 1.5 (1-3); Calcium 8.9 mg/dL (8.6-10.3); Creatinine, Serum 0.87 mg/dL (0.51-0.95); Globulin 2.5 g/dL (2-4); Potassium 3.8 mmol/L (3.5-5.0); Total Bilirubin 0.5 mg/dL (0.2-1.0); Total Protein 6.2 g/dL (6.4-8.9); eGFR CKD-EPI 73.4 (>60)
[2024-07-26] MEDS: Ondansetron 4 mg VIAL 2 MG/ML 2 ml VIAL IV ONE (13:49)
[2024-07-26 14:02] LABS: High Sensitivity Troponin 1 Hr 5 pg/mL (<15)
[2024-07-26] MEDS: Dexamethasone IV 4 MG/ML VIAL 1 ml VIAL IV SLOW PU ONE (14:12)
[2024-07-26] MEDS: Prochlorperazine 5 mg/ml 2 ml VIAL (10 mg) IV ONE (14:13)
[2024-07-26] MEDS: Iodixanol 320 (CONTRAST) 100 ML SDV IV ONE (14:21)
[2024-07-26 14:40] LABS: ABS Basophils 0.1 10^3/uL (0.0-0.1); ABS Eosinophils 0.1 10^3/uL (0.0-0.5); ABS Lymphocytes 1.1 10^3/uL (1.0-4.8); ABS Monocytes 0.4 10^3/uL (0.0-0.9); ABS Neutrophils 4.2 10^3/uL (1.5-7.6); Hemoglobin 13.1 g/dL (11.5-14.3); Lymphocyte % 19.2 %; Mean Corpuscular Hemoglobin 29.6 pg (27-33); Mean Corpuscular Hgb Conc 33.5 g/dL (31-36); Mean Corpuscular Volume 88.2 fL (80-97); Mean Platelet Volume 8.6 fL (7.5-11.2); Platelet Count 281 10^3/uL (150-450); Red Blood Count 4.42 10^6/uL (3.63-4.92); Red Cell Distribution Width 15.3 % (12-17)
[2024-07-26 15:03] LABS: Activated Partial Thrombo Time 30.5 seconds (26.0-38.0); INR 1.02 (0.85-1.14)
[2024-07-26 15:23] LABS: Albumin 3.6 g/dL (3.5-5.7); Albumin/Globulin Ratio 1.4 (1-3); Calcium 8.8 mg/dL (8.6-10.3); Creatinine, Serum 0.82 mg/dL (0.51-0.95); Globulin 2.6 g/dL (2-4); HDL Cholesterol 64.5 mg/dL; Indirect Bilirubin 0.6 mg/dL (0.3-1.0); Total Bilirubin 0.6 mg/dL (0.2-1.0); Total Protein 6.2 g/dL (6.4-8.9); eGFR CKD-EPI 78.8 (>60)
[2024-07-26] MEDS: Acetaminophen IV 1 GM/100ML 1,000 MG/100 ML BAG IV ONE (16:23)
[2024-07-26] MEDS: Metoprolol Tartrate 5 mg VIAL 5 ml VIAL (1 mg/ml) IV ONE (16:23)
[2024-07-26 16:38] LABS: Urine Appearance Clear; Urine Bilirubin Negative (Negative); Urine Blood Negative (Negative); Urine Color Colorless; Urine Glucose Negative (Negative); Urine Ketones Negative (Negative); Urine Nitrite Negative (Negative); Urine Protein Negative (Negative); Urine Specific Gravity 1.015 (1.002-1.030); Urine Urobilinogen Negative (Negative)
[2024-07-26] MEDS: hydrALAZINE 20 mg/ml 1 ML Vial IV IV SLOW PU ONE (17:56)
[2024-07-26] MEDS: Orphenadrine Citrate INJ 30 mg/ml 2 ml VIAL (60 mg) IV ONE (21:00)
[2024-07-27] MEDS: oxyCODONE/Acetamin 5/325 mg TAB PO PRN (00:08)
[2024-07-27] MEDS: Metoclopramide 5 MG/ML VIAL (10 mg) IV SLOW PU ONE (03:30)
[2024-07-27] MEDS: Aspirin EC 81 mg TAB.EC (enteric coated) PO SCH (08:16)
[2024-07-27] MEDS: Cholecalciferol (VIT D3) 1,000 unit TAB PO SCH (08:17)
[2024-07-27] MEDS: DULoxetine DR 30 mg CAP PO SCH (08:17)
[2024-07-27] MEDS: CMC:Mirabegron 25 mg ER TAB (NF) PO SCH (08:18)
[2024-07-27] MEDS ORDERED: Meloxicam 15 mg TAB (NF) PO SCH (09:00)
[2024-07-27] MEDS: Fluticasone NASAL SPRAY 50MCG 16 gm SPRAY BTL BOTH NARES SCH (11:40)
[2024-07-27 16:23] LABS: TSH Ultra Thyroid Stim Horm 0.54 mcIU/mL (0.34-5.60)
[2024-07-27 16:34] LABS: Folate 11.47 ng/mL (5.90-24.80)
[2024-07-27] MEDS: CMCS:diPHENhydraMINE CREAM 2%(NF) 28 gm TUBE TOPICAL PRN (19:36)
[2024-07-27 23:22] LABS: High Sensitivity Troponin 1 Hr 4 pg/mL (<15)
[2024-07-28 05:47] LABS: ABS Basophils 0.1 10^3/uL (0.0-0.1); ABS Eosinophils 0.1 10^3/uL (0.0-0.5); ABS Lymphocytes 2.1 10^3/uL (1.0-4.8); ABS Monocytes 0.5 10^3/uL (0.0-0.9); ABS Neutrophils 4.8 10^3/uL (1.5-7.6); Eosinophil % 1.6 %; Hematocrit 36.9 % (35-45); Hemoglobin 12.3 g/dL (11.5-14.3); Lymphocyte % 27.1 %; Mean Corpuscular Hemoglobin 29.9 pg (27-33); Mean Corpuscular Hgb Conc 33.3 g/dL (31-36); Mean Corpuscular Volume 89.5 fL (80-97); Mean Platelet Volume 8.9 fL (7.5-11.2); Platelet Count 294 10^3/uL (150-450); Red Blood Count 4.12 10^6/uL (3.63-4.92); Red Cell Distribution Width 15.2 % (12-17); White Blood Count 7.6 10^3/uL (3.8-11.8)
[2024-07-28 06:02] LABS: Creatinine, Serum 1.05 mg/dL (0.51-0.95); Potassium 4.2 mmol/L (3.5-5.0); eGFR CKD-EPI 58.6 (>60)
[2024-07-28] MEDS: NS 0.9% 1000 ml BAG 1,000 ML IV SCH (10:30)
[2024-07-29 06:05] LABS: ABS Basophils 0.1 10^3/uL (0.0-0.1); ABS Eosinophils 0.2 10^3/uL (0.0-0.5); ABS Lymphocytes 2.2 10^3/uL (1.0-4.8); ABS Monocytes 0.6 10^3/uL (0.0-0.9); ABS Neutrophils 4.4 10^3/uL (1.5-7.6); Eosinophil % 2.9 %; Hemoglobin 13.2 g/dL (11.5-14.3); Lymphocyte % 29.2 %; Mean Corpuscular Hemoglobin 30.6 pg (27-33); Mean Corpuscular Volume 90.1 fL (80-97); Mean Platelet Volume 8.9 fL (7.5-11.2); Platelet Count 326 10^3/uL (150-450); Red Blood Count 4.32 10^6/uL (3.63-4.92); Red Cell Distribution Width 15.3 % (12-17); White Blood Count 7.4 10^3/uL (3.8-11.8)
[2024-07-29 06:24] LABS: Calcium 8.7 mg/dL (8.6-10.3); Creatinine, Serum 2.05 mg/dL (0.51-0.95); Magnesium 2.1 mg/dL (1.9-2.7); eGFR CKD-EPI 26.3 (>60)
[2024-07-30 06:07] LABS: ABS Basophils 0.1 10^3/uL (0.0-0.1); ABS Eosinophils 0.2 10^3/uL (0.0-0.5); ABS Lymphocytes 1.9 10^3/uL (1.0-4.8); ABS Monocytes 0.5 10^3/uL (0.0-0.9); ABS Neutrophils 3.2 10^3/uL (1.5-7.6); ABS Nucleated RBC 0.01 10^3/ul; Eosinophil % 3.9 %; Hematocrit 39.2 % (35-45); Hemoglobin 13.1 g/dL (11.5-14.3); Lymphocyte % 31.2 %; Mean Corpuscular Hemoglobin 30.1 pg (27-33); Mean Corpuscular Hgb Conc 33.6 g/dL (31-36); Mean Corpuscular Volume 89.6 fL (80-97); Mean Platelet Volume 8.9 fL (7.5-11.2); Nucleated Red Blood Cells % 0.1 %/100WBC (0.0-0.8); Platelet Count 309 10^3/uL (150-450); Red Blood Count 4.37 10^6/uL (3.63-4.92); Red Cell Distribution Width 15.3 % (12-17)
[2024-07-30 06:22] LABS: Calcium 8.6 mg/dL (8.6-10.3); Creatinine, Serum 1.7 mg/dL (0.51-0.95); Magnesium 2.4 mg/dL (1.9-2.7); Potassium 4.6 mmol/L (3.5-5.0); eGFR CKD-EPI 32.9 (>60)
[2024-07-30] MEDS: oxyCODONE/Acetamin 5/325 mg TAB PO ONE (10:08)
[2024-07-30] MEDS: NS 0.9% 1000 ml BAG 1,000 ML IV SCH (10:57)
[2024-07-30] MEDS: oxyCODONE/Acetamin 5/325 mg TAB PO SCH (12:07)
[2024-07-30] MEDS: Morphine 2 MG/ML SYRINGE IV PRN (16:52)
[2024-07-31 09:28] LABS: Calcium 8.8 mg/dL (8.6-10.3); Creatinine, Serum 0.98 mg/dL (0.51-0.95); Potassium 4.6 mmol/L (3.5-5.0); eGFR CKD-EPI 63.7 (>60)
[2024-07-31] MEDS ORDERED: Succinylcholine 200 mg VIAL 20 mg/ml 10 ml VIAL (200 mg) ONE (10:14)
[2024-07-31] MEDS ORDERED: Rocuronium 50 mg VIAL 10 mg/ml 5 ml VIAL (50 mg) ONE (10:14)
[2024-07-31] MEDS ORDERED: Midazolam 2 mg/2 ml VIAL 1 mg/ml 2 ml VIAL (2 mg) ONE (10:22)
[2024-07-31] MEDS ORDERED: fentaNYL 100 mcg/2 ml 50 MCG/ML VIAL ONE ×2 (10:22→12:28)
[2024-07-31] MEDS ORDERED: Metoclopramide 5 MG/ML VIAL (10 mg) IV PRN (11:45)
[2024-07-31] MEDS ORDERED: Naloxone 0.4 mg VIAL 0.4 mg/ml 1 ml VIAL IV PRN (11:45)
[2024-07-31] MEDS ORDERED: NS 0.45% 1000 ml BAG 1,000 ML IV SCH (12:00)
[2024-07-31] MEDS: fentaNYL 100 mcg/2 ml 50 MCG/ML VIAL IV PRN (12:30)
[2024-07-31] MEDS ORDERED: Albuterol/Ipratropium NEB.SOL (2.5/0.5 MG) 3 ML NEB.SOLN ONE (12:57)
[2024-07-31] MEDS ORDERED: Ondansetron 4 mg VIAL 2 MG/ML 2 ml VIAL ONE (13:01)
[2024-07-31] MEDS: Ondansetron 4 mg VIAL 2 MG/ML 2 ml VIAL IV PRN (13:02)
[2024-07-31] MEDS: Buffered Lidocaine 1% SYRIN 1 ml INTRADERM ONE (16:50)
[2024-07-31] MEDS: Acetaminophen IV 1 GM/100ML 1,000 MG/100 ML BAG IV ONE (16:50)
[2024-07-31] MEDS: Albuterol/Ipratropium NEB.SOL (2.5/0.5 MG) 3 ML NEB.SOLN INH ONE (16:51)
[2024-07-31] MEDS: Scopolamine 1 mg/72hr PATCH TRANSDERM ONE (16:51)
[2024-07-31] MEDS: Lactated Ringers 1000 ml BAG 1,000 ML IV SCH (18:52)
[2024-07-31 21:24] VITALS: BP 159/75
== END 2024-07-31 23:58 | disposition short-term general hospital (02) | DRG 103 ==
LOC: ED 12:00 → EDHOLD 12:00 → MEDTELE 23:48
PROVIDERS: ADMIT Student in an Organized Health Care Education/Training Program; ATTEND Student in an Organized Health Care Education/Training Program